=== PATIENT | female | born 1990 | race Caucasian/White ===

== ENCOUNTER → 2021-04-27 | Outpatient (CLI) | payer OTHER ==
[2021-04-27 16:14] LABS: BASO % 0 % (0-3); EOS # 0.1 x10^3/uL (0.0-0.7); EOS % 1 % (0-3); HEMATOCRIT 38.6 % (36.0-47.0); HEMOGLOBIN 13.6 g/dL (12.0-15.5); LYMPH # 1.7 x10^3/uL (1.0-4.8); LYMPH % 19 % (24-48); MEAN CORPUSCULAR HEMOGLOBIN 33 pg (25-35); MEAN CORPUSCULAR HGB CONC 35 g/dL (31-37); MEAN CORPUSCULAR VOLUME 94 fL (79-100); MONO # 0.5 x10^3/uL (0.0-1.1); MONO % 6 % (0-9); NEUT # 6.5 x10^3uL (1.8-7.7); NEUT % 74 % (31-73); PLATELET COUNT 253 x10^3/uL (140-400); RED BLOOD COUNT 4.13 x10^6/uL (3.50-5.40); RED CELL DISTRIBUTION WIDTH 13.2 % (11.5-14.5); WHITE BLOOD COUNT 8.8 x10^3/uL (4.0-11.0)
[2021-04-28 17:10] LABS: RUBELLA IGG ANTIBODY <0.90 index (Immune >0.99)
[2021-04-28 19:11] LABS: FREE T4 1.23 ng/dL (0.76-1.46); THYROID STIM HORMONE (TSH) 0.898 uIU/mL (0.358-3.740)
== END ==
LOC: LAB 14:54
PROVIDERS: ATTEND Obstetrics & Gynecology
DX: Z34.91 Encounter for supervision of normal pregnancy, unspecified, first trimester (principal)
CPT/HCPCS: 36415; 81220; 84439; 84443; 85025; 85660; 86592; 86703; 86762; 86787; 86803; 86850; 86900; 86901; 87340

== ENCOUNTER → 2021-05-11 | Outpatient (CLI) | payer OTHER ==
--- NOTE | 2021-05-11 10:14 | RAD ---
First trimester OB ultrasound CLINICAL HISTORY: 1ST TRIMESTER SCAN, UNSURE DATES COMPARISON: None available. TECHNIQUE: transabdominal and endovaginal sonography was performed FINDINGS: The uterus is early gravid with otherwise normal appearance measuring 16.0 x 6.0 x 8.0 cm. An intraut erine gestational sac is present, normal in morphology.. An embryo is identified .Cardiac activity i s visualized and documented at a rate of 171 beats per minute. There is no subchorionic fluid collect ion. The cervix measures 5.3 cm and is closed. Based on a crown rump length averaging 2.77 cm, the estimated gestational age is 9 weeks 4 days. Est imated date of delivery is 12/10/2021 Right ovary: 3.5 x 2.9 x 1.9 cm Left ovary: 3.1 x 3.6 x 2.4 cm Color flow to both ovaries. There is no pelvic free fluid. IMPRESSION: Single viable intrauterine gestation with estimated sonographic gestational age of 9 weeks 4 days, wi th estimated gestational age of 2/4/2022. This is concordant with last menstrual period 03/06/2021 clin ical age of 9 weeks 3 days and EDC of 12/11/2021. Electronically signed by: Ceferino Arora MD (05/11/2021 10:11 AM) [id number]
== END ==
LOC: US 07:50
PROVIDERS: ATTEND Obstetrics & Gynecology
DX: Z34.91 Encounter for supervision of normal pregnancy, unspecified, first trimester (principal); Z3A.09 9 weeks gestation of pregnancy
CPT/HCPCS: 76801